=== PATIENT | male | born 1960 | race Caucasian/White ===

== ENCOUNTER 2024-09-03 19:17 | Emergency (ER) | payer MEDICAID, OTHER ==
[~2024-09-03] VITALS: Ht 165.1 cm; Wt 77.0 kg
[~2024-09-03 19:17] MED LIST: METF-414
[2024-09-03 19:24] VITALS: BP 138/75; PULSE 89; RESP 18; TEMP 36.9; O2SAT 97
[2024-09-03] MEDS: CYCLOBENZAPRINE 10MG TABLET PO ONE (23:15)
[2024-09-04 00:41] LABS: BASOPHILS % 0.6 % (0.0-2.0); EOSINOPHILS % 1.4 % (0.0-5.0); HEMATOCRIT. 44.0 % (42.0-52.0); HEMOGLOBIN. 14.9 g/dL (14.0-18.0); LYMPHOCYTES % 32.1 % (20.0-50.0); MEAN PLATELET VOLUME 8.6 fl (7.4-10.4); MONOCYTES % 7.4 % (2.0-8.0); NEUTROPHILS % 58.5 % (40.0-76.0); PLATELET 284 x1000/uL (130-400); RED BLOOD CELL COUNT 5.45 mill/uL (4.7-6.1); RED CELL DISTRIBUTION WIDTH 14.1 % (11.6-14.6)
[2024-09-04 00:55] LABS: CREATININE 1.0 mg/dL (0.6-1.3)
[2024-09-04 00:56] LABS: UREA NITROGEN BLOOD 11 mg/dL (9-23)
[2024-09-04 00:57] LABS: TROPONIN I HIGH SENSITIVITY 10 ng/L (3.0-53)
[2024-09-04] MEDS ORDERED: NAPR-1176 MT (02:23)
== END 2024-09-04 02:54 | disposition home or self-care (01) ==
LOC: ER 19:17
DX: R25.2 Cramp and spasm (principal); E11.9 Type 2 diabetes mellitus without complications; Z79.1 Long term (current) use of non-steroidal anti-inflammatories (NSAID); Z79.899 Other long term (current) drug therapy
CPT/HCPCS: 36415; 71045; 80048; 84484; 85025; 93005; 99285